=== PATIENT | female | born 1990 | race Caucasian/White ===

== ENCOUNTER → 2017-05-30 | Outpatient (CLI) | payer OTHER ==
[~2017-05-30] VITALS: Ht 157.5 cm; Wt 72.0 kg
[~2017-05-30] MED LIST: PRENATAL TABLE1 EAC3 PO; SEROQUEL200 MG PO
[2017-05-30 07:50] VITALS: BP 127/72
== END | disposition home or self-care (01) ==
LOC: IVINF 07:30
DX: Z34.83 Encounter for supervision of other normal pregnancy, third trimester (principal); Z3A.28 28 weeks gestation of pregnancy; Z67.11 Type A blood, Rh negative
CPT/HCPCS: 96372

== ENCOUNTER 2017-07-03 07:06 | Inpatient (IN) | payer OTHER ==
[~2017-07-03] VITALS: Ht 152.4 cm; Wt 78.0 kg
[2017-07-03] VITALS (19 sets, daily range): BP systolic 99–128; BP diastolic 55–85
[2017-07-03 08:03] LABS: BASOPHIL (%) 0.3 % (0-1); EOSINOPHIL COUNT 0.1 K/uL (0-0.3); HEMATOCRIT 34.6 % (36.0-46.0); HEMOGLOBIN 12.1 G/DL (11.9-15.5); IMMATURE GRANULOCYTE (%) 1.7 % (0.0-0.7); LYMPHOCYTE (%) 17.5 % (15-42); LYMPHOCYTE COUNT 2.2 K/uL (1.0-2.8); MCH 32.9 PG (29.0-34.0); MONOCYTE (%) 4.6 % (3-12); MONOCYTE COUNT 0.6 K/uL (0-0.8); NEUTROPHIL (%) 74.9 % (45-76); NEUTROPHIL COUNT 9.4 K/uL (1.8-6.4); PLATELET COUNT 197 K/uL (156-360); RBC DIS.WIDTH-CV 12.2 % (11.8-14.6); RBC DIS.WIDTH-SD 42.3 % (39-53); RED BLOOD COUNT 3.68 M/uL (3.80-5.20); WHITE BLOOD COUNT 12.6 K/uL (4.1-10.2)
[2017-07-03 09:43] LABS: APPEARANCE CLEAR ((CLEAR)); BILIRUBIN NEGATIVE; BLOOD NEGATIVE; COLOR YELLOW ((YELLOW)); GLUCOSE (STRIP) NEGATIVE; KETONES NEGATIVE; LEUKOCYTES NEGATIVE; NITRITE NEGATIVE; PROTEIN (STRIP) NEGATIVE; UCUL ADDED? NO; UROBILINOGEN 0.2 MG/DL (0.2-1.0)
[2017-07-03 10:31] LABS: GROUP B STREP NEGATIVE (NEGATIVE)
[2017-07-03 10:41] LABS: BENZODIAZEPINES, URINE SCREEN Negative (200 ng/mL)
[2017-07-04] VITALS (16 sets, daily range): BP systolic 89–130; BP diastolic 50–76
[2017-07-05] VITALS (9 sets, daily range): BP systolic 85–121; BP diastolic 48–73
[2017-07-06 03:41] VITALS: BP 102/58
[2017-07-06 06:56] VITALS: BP 95/52
[2017-07-06 11:11] VITALS: BP 117/71
[2017-07-06 14:59] VITALS: BP 121/66
[2017-07-06 15:32] VITALS: BP 124/68
[2017-07-06 20:11] VITALS: BP 112/61
[2017-07-07] VITALS (8 sets, daily range): BP systolic 94–129; BP diastolic 49–83
[2017-07-08 01:00] VITALS: BP 113/60
[2017-07-08 03:00] VITALS: BP 108/62
[2017-07-08 07:22] VITALS: BP 128/77
[2017-07-08 07:47] LABS: BASOPHIL (%) 0.2 % (0-1); EOSINOPHIL (%) 0.1 % (0-5); HEMATOCRIT 30.9 % (36.0-46.0); HEMOGLOBIN 10.5 G/DL (11.9-15.5); IMMATURE GRANULOCYTE (%) 2.6 % (0.0-0.7); LYMPHOCYTE (%) 12.3 % (15-42); LYMPHOCYTE COUNT 2.4 K/uL (1.0-2.8); MCH 32.2 PG (29.0-34.0); MCV 94.8 FL (83-99); MONOCYTE (%) 5.6 % (3-12); MONOCYTE COUNT 1.1 K/uL (0-0.8); NEUTROPHIL (%) 79.2 % (45-76); NEUTROPHIL COUNT 15.3 K/uL (1.8-6.4); PLATELET COUNT 183 K/uL (156-360); RBC DIS.WIDTH-CV 12.1 % (11.8-14.6); RBC DIS.WIDTH-SD 41.7 % (39-53); RED BLOOD COUNT 3.26 M/uL (3.80-5.20); WHITE BLOOD COUNT 19.3 K/uL (4.1-10.2)
[2017-07-08 10:51] VITALS: BP 107/65
[2017-07-08 14:47] VITALS: BP 111/55
[2017-07-09] MEDS ORDERED: TRAMADOL HCL50 MG PO (11:00)
[2017-07-09] MEDS ORDERED: IBUPROFEN800 MG PO (11:00)
[2017-07-09 15:18] VITALS: BP 123/79
[2017-07-09 22:55] VITALS: BP 119/69
[2017-07-10 08:15] VITALS: BP 109/65
[2017-07-10 15:00] VITALS: BP 132/81
== END 2017-07-10 21:25 | disposition home or self-care (01) | DRG 766 ==
LOC: LDRP-OP → 2WEST 07:07 → LDRP-OP 09-17 16:04
PROVIDERS: Obstetrics & Gynecology Gynecology; Obstetrics & Gynecology Obstetrics
DX: O32.1XX0 Maternal care for breech presentation, not applicable or unspecified (principal); Z30.2 Encounter for sterilization; O42.913 Preterm premature rupture of membranes, unspecified as to length of time between rupture and onset of labor, third trimester; O99.334 Smoking (tobacco) complicating childbirth; F17.200 Nicotine dependence, unspecified, uncomplicated; O99.344 Other mental disorders complicating childbirth; F32.9 Major depressive disorder, single episode, unspecified; F41.9 Anxiety disorder, unspecified; F90.9 Attention-deficit hyperactivity disorder, unspecified type; Z3A.34 34 weeks gestation of pregnancy; Z37.0 Single live birth
CPT/HCPCS: 76818; 80306 90; 81003; 83030; 83735; 85025; 86850; 86870; 86900; 86901; 86905; 86920; 87653; 88302; 88307; G0378; J0290; J0330; J0690; J0702; J1170; J1200; J1885; J2270; J2274; J2405; J2765; J2790; J3010; J3475; J7050; J7120